=== PATIENT | female | born 1980 | race Caucasian/White ===

== ENCOUNTER 2017-06-12 11:38 | Emergency (ER) | payer OTHER ==
[2017-06-12 11:59] VITALS: PULSE 59
[2017-06-12] MEDS ORDERED: ACETAMINOPHEN 325 MG TAB PO ONE (12:06)
--- NOTE | 2017-06-12 13:22 | EDPHY ---
H & P Stated Complaint: LUE pain and swelling Time Seen by Provider: 06/12/17 12:42 HPI/ROS: CHIEF COMPLAINT: Left arm swelling HISTORY OF PRESENT ILLNESS: This is a healthy immunocompetent 36-year-old female who presents with 24 hr of left arm swelling. She noticed this while running on the treadmill yesterday. She continued to run and last night tried ice and elevation to no avail. She presents today concerned about left upper arm swelling. She notices some mild redness and warmth of her upper arm just below the shoulder. She has a dull aching pain of the left upper arm. No numbness or weakness. She has not had trauma. No personal or family history of VTE. No risk factors for VTE. She denies trauma. No IVDA. REVIEW OF SYSTEMS: A ten point review of systems was performed and is negative with the exception of the items mentioned in the HPI. Past medical history: Negative Past surgical history: Left breast lumpectomy, benign 2002 Family history: Breast cancer Social history: She works as a psychotherapist. She is . She does not use tobacco products. She drinks alcohol socially. General Appearance: Alert. Vital signs reviewed. Blood pressure 127/85. Eyes: Pupils equal and round, no conjunctival injection, no discharge. Anicteric. ENT, Mouth: Mucous membranes are moist, no oropharyngeal erythema or edema. Neck: No lymphadenopathy, supple. Respiratory: Lungs are clear to auscultation; no wheezes, rales, or rhonchi. Cardiovascular: Regular rate and rhythm; no murmur, rub, or gallop. Gastrointestinal: Abdomen is soft and nontender, no masses or organomegaly, bowel sounds normal. Skin: Warm and dry, no rashes on exposed skin, normal color. Back: Nontender to palpation over the thoracolumbar spine. No CVAT. Extremities: Mild edema of the left upper arm. There is mild warmth and erythema just distal to the shoulder. Full painless active range of motion of the left shoulder, elbow, and wrist. No lower extremity edema, no calf tenderness or swelling. A signs of trauma. Pulses: 2+ left radial pulse. Neurological: Alert and oriented. Moving all four extremities easily and equally. Psychiatric: Normal affect. - Personal History LMP (Females 10-55): 8-14 Days Ago Current Tetanus/Diphtheria Vaccine: Unsure Current Tetanus Diphtheria and Acellular Pertussis (TDAP): Unsure - Medical/Surgical History Hx Asthma: No Hx Chronic Respiratory Disease: No Hx Diabetes: No Hx Cardiac Disease: No Hx Renal Disease: No Hx Cirrhosis: No Hx Alcoholism: No Hx HIV/AIDS: No Hx Splenectomy or Spleen Trauma: No Other PMH: L breast lumpectomy 2001, - Social History Smoking Status: Never smoked Constitutional: Initial Vital Signs Temperature (C) 37 C 06/12/17 11:57 Heart Rate 59 L 06/12/17 11:57 Respiratory Rate 16 06/12/17 11:57 Blood Pressure 127/85 H 06/12/17 11:57 O2 Sat (%) 95 06/12/17 11:57 O2 Delivery Mode Room Air Allergies/Adverse Reactions: No Known Allergies Allergy (Unverified 06/12/17 11:57) Home Medications: Medication Instructions Recorded Cephalexin [Keflex] 500 mg PO TID #21 cap 06/12/17 Sulfamethox/Tmp 800/160 mg 1 tab PO BID #14 tab 06/12/17 [Bactrim Ds] Medical Decision Making - Diagnostics Imaging Results: Imaging Impressions Extremity Venous Study 06/12/17 12:05 Impression: No deep venous thrombosis left arm. Findings and recommendations discussed with Emergency Department physician, CAMI LOVING at 12:49 hour, 06/12/2017. Final report concurs with initial preliminary interpretation. ED Course/Re-evaluation: Mild swelling, warmth, and erythema of the left upper extremity. No trauma. The ultrasound is negative for DVT or superficial thrombophlebitis. I suspect cellulitis. I do not see any injury to the arm. There is no abscess. She is not otherwise ill and I do not suspect a deeper or sinister infection such as necrotizing fasciitis. She is being started on Bactrim and Keflex. I reviewed the danger signs that should prompt immediate re-evaluation. She is advised to follow up next week with her PCP. - Data Points Medications Given: Discontinued Medications Acetaminophen (Tylenol) 650 mg PO EDNOW ONE Stop: 06/12/17 12:07 Last Admin: 06/12/17 12:08 Dose: 650 mg Departure - Departure Disposition: Home, Routine, Self-Care Clinical Impression: Cellulitis Qualifiers: Site of cellulitis: extremity Site of cellulitis of extremity: upper extremity Laterality: left Qualified Code(s): L03.114 - Cellulitis of left upper limb Condition: Good Instructions: Cellulitis (ED) Additional Instructions: Take the antibiotics as prescribed. Have her home re-examined this coming week. [facility] to arrange an appointment. Let them know that you were seen in the emergency department on Wednesday. If you are worse in any way--fever, general malaise, increasing redness, increasing warmth, severe pain out of proportion to what you might expect when you look at your arm--you should be reexamined immediately. Referrals: [facility] [Other] - As per Instructions Prescriptions: Cephalexin [Keflex] 500 mg PO TID #21 cap Sulfamethox/Tmp 800/160 mg [Bactrim Ds] 1 tab PO BID #14 tab
[2017-06-12 14:40] VITALS: BP 118/81; RESP 18; TEMP 98.8; O2SAT 97
== END 2017-06-12 14:40 | disposition home or self-care (01) ==
DX: L03.114 Cellulitis of left upper limb (principal)